=== PATIENT | female | born 1960 | race Caucasian/White ===

== ENCOUNTER 2016-07-13 07:39 | Emergency (ER) | payer BC, OTHER ==
[~2016-07-13] VITALS: Ht 175.3 cm; Wt 65.8 kg
[2016-07-13] MEDS ORDERED: ALENDRONATE SOD70 MG PO (07:56)
[2016-07-13] MEDS ORDERED: LIPITOR 20 MG T20 M1 PO (07:56)
[2016-07-13 08:18] LABS: URINE BILIRUBIN NEGATIVE (Negative); URINE BLOOD 2+ (Negative); URINE COLOR YELLOW; URINE GLUCOSE-RANDOM* NEGATIVE (Negative); URINE KETONES NEGATIVE (Negative); URINE LEUKOCYTES-REFLEX TRACE (Negative); URINE PROTEIN (DIPSTICK) NEGATIVE (Negative); URINE UROBILINOGEN 0.2 E.U./dl (0.2-1.0)
[2016-07-13 08:21] LABS: ABSOLUTE NEUTROPHILS 3.7 thou/uL (1.4-8.2); BASOPHILS 0.5 % (0.0-2.0); EOSINOPHILS 1.6 % (0.0-3.0); HEMATOCRIT 42.5 % (37.0-47.0); HEMOGLOBIN 14.4 gm/dL (12.0-15.0); LYMPHOCYTES 21.4 % (24.0-44.0); MCH 30.6 pg (26.0-34.0); MCHC 33.9 % (28.0-37.0); MCV 90.3 fL (80.0-100.0); MONOCYTES 7.7 % (1.0-8.0); POLYS 68.8 % (36.0-66.0); RBC 4.71 mil/uL (4.20-5.00); WBC 5.3 thou/uL (4.0-11.0)
[2016-07-13 08:21] LABS: SQUAMOUS 0-3 Few /LPF (0-3)
[2016-07-13 08:22] LABS: CASTS None Seen /LPF (None Seen); CRYSTALS None Seen /LPF (None Seen); URINE RBC 3-10 Few /HPF (0-2); URINE WBC-REFLEX 0-5 Rare /HPF (0-5)
[2016-07-13 08:24] LABS: CALCIUM 9.9 mg/dL (8.5-10.1); CREATININE 0.6 mg/dL (0.6-1.3)
[2016-07-13 08:27] LABS: MANUAL DIFF NO
[2016-07-13 08:46] LABS: LARGE PLATELETS FEW; PLATELET COUNT 148 thou/uL (150-400)
[2016-07-13] MEDS ORDERED: ZOFRAN ODT4 MG PO (09:47)
[2016-07-13] MEDS ORDERED: NORCO 5-325 TA1 EACH PO (09:47)
[2016-07-13] MEDS ORDERED: KEFLEX500 MG PO (09:47)
[2016-07-13] MEDS ORDERED: FLOMAX0.4 MG PO (09:47)
[2016-07-13 10:04] VITALS: BP 132/86
== END 2016-07-13 10:06 | disposition home or self-care (01) ==
LOC: ER 07:39
PROVIDERS: Emergency Medicine
DX: N20.1 Calculus of ureter (principal); N39.0 Urinary tract infection, site not specified; Z88.5 Allergy status to narcotic agent; Z98.890 Other specified postprocedural states